=== PATIENT | male | born 1935 | race Caucasian/White ===

== ENCOUNTER 2016-04-26 08:22 | Observation (INO) | payer OTHER ==
[~2016-04-26] VITALS: Ht 170.2 cm; Wt 88.0 kg
--- NOTE | 2016-04-26 08:31 | NUR ---
PT C/O H/A SINCE LAST NIGHT, TODAY PER SON, PT CONFUSED, HAVING TROUBLE SPEAKING AND UNDERSTANDING. HAND GRASP EQUAL AND STRONG, PT AMBULATES WITHOUT DIFFICULTY, NO FACIAL DROOP NOTED
--- NOTE | 2016-04-26 08:35 | NUR ---
SPOKE WITH DR WHITE - CT HEAD ORDERED
--- NOTE | 2016-04-26 08:38 | NUR ---
C/O HEGENESIS, SPEAKS PRIMARILY [place]. PLACED ON MONITOR, IVCD RHYTHM ON MONITOR. AWAITING PROVIDER EVALUATION.
--- NOTE | 2016-04-26 08:45 | NUR ---
EVALUATED BY DR. WHITE.
--- NOTE | 2016-04-26 08:55 | NUR ---
TO CT SCAN.
--- NOTE | 2016-04-26 09:01 | ED HEADACHE COMPLAINT ---
History of Present Illness General Chief Complaint: Neuro Symptoms/ Deficit Stated Complaint: ALTERED MENTAL PER SON TIA IN PAST Source: patient, family, old records Exam Limitations: no limitations Vital Signs & Intake/Output Vital Signs & Intake/Output Vital Signs Date Time Temp Pulse Resp B/P Pulse O2 O2 Flow FiO2 Ox Delivery Rate 04/26 0830 97.0 75 20 118/70 97 Room Air Allergies Coded Allergies: NO KNOWN ALLERGIES (10/05/10) Reconcile Medications Amlodipine Besylate 5 MG TABLET 1 TAB PO DAILY HEART (Reported) Atenolol 100 MG TABLET 1 TAB PO BID HEART (Reported) Atorvastatin Calcium 20 MG TABLET 1 TAB PO DAILY CHOLESTEROL (Reported) Clopidogrel Bisulfate (Clopidogrel) 75 MG TABLET 1 TAB PO DAILY BLOOD THINNER (Reported) Finasteride 5 MG TABLET 1 TAB PO DAILY PROSTATE (Reported) Glipizide 5 MG TABLET 1 TAB PO DAILY DM (Reported) Metformin HCl 500 MG TABLET 1 TAB PO DAILY DM (Reported) Tamsulosin HCl 0.4 MG CAP.ER.24H 1 CAP PO DAILY PROSTATE (Reported) Triage Note: PT C/O H/A SINCE LAST NIGHT, TODAY PER SON, PT CONFUSED, HAVING TROUBLE SPEAKING AND UNDERSTANDING. HAND GRASP EQUAL AND STRONG, PT AMBULATES WITHOUT DIFFICULTY, NO FACIAL DROOP NOTED Triage Nurses Notes Reviewed? yes HPI: Patient presents for evaluation of a headache that began gradually last night at about 8:00. The patient is somewhat of a poor historian but was able to describe a fluctuating throbbing bifrontal headache that has been constant since onset. Patient states he typically does not get headaches but did have similar signs and symptoms with a previous TIA. There is been no associated visual changes paresthesias chest pain or palpitations. He cannot recall if he tried any medication for the headache. According to the family the patient seems somewhat confused since about 6:00 this morning upon awakening. They state he tried to put a sweater on like a pair of pants. He does not have baseline confusion. Family also states that he has having trouble articulating his words but there appears to be no expressive aphasia. Past History Travel History Traveled to [place] past 21 day No Medical History Any Pertinent Medical History? see below for history Neurological: TIA Cardiovascular: hypertension, PACEMAKER Endocrine: diabetes Surgical History Surgical History: non-contributory Psychosocial History Who do you live with Spouse What is your primary language Togolese Tobacco Use: Never used ETOH Use: denies use Illicit Drug Use: denies illicit drug use Family History Hx Contributory? No Review of Systems Review of Systems Constitutional: Reports: no symptoms. Eyes: Reports: no symptoms. Ears, Nose, Throat, Mouth: Reports: no symptoms. Respiratory: Reports: no symptoms. Cardiovascular: Reports: no symptoms. Gastrointestinal/Abdominal: Reports: no symptoms. Genitourinary: Reports: no symptoms. Musculoskeletal: Reports: no symptoms. Skin: Reports: no symptoms. Neurological/Psychological: Reports: headache. Hematologic/Endocrine: Reports: no symptoms. Endocrine: Reports: no symptoms. Immunologic/Allergic: Reports: no symptoms. All Other Systems: Reviewed and Negative Physical Exam Physical Exam Cranial Nerves: see below Comments: Gen.: Well-nourished, well-developed, no acute respiratory distress. Head: Normocephalic, atraumatic. Eyes: Normal inspection bilaterally, PERRLA, EOMI Ears: Normal inspection bilaterally Nose: Normal inspection Throat/mouth : Moist mucosa Neck: Supple, full range of motion, no goiter, no carotid bruits Heart: Regular rate and rhythm, no murmurs rubs or gallops Lungs: Clear to auscultation bilaterally with normal air entry Chest: Nontender Back: Normal range of motion Abdomen: Soft, nontender, nondistended, normal bowel sounds Extremities: Normal range of motion grossly, equal radial pulses, no cyanosis clubbing or edema Neurologic: Cranial nerves 2 through 12 intact, speech is occasionally slurred, no dysmetria Skin: warm and dry Psychiatric: Calm, cooperative, no apparent delusions or hallucinations Core Measures Severe Sepsis Present: No Septic Shock Present: No Progress Differential Diagnosis: tia/cva, primary headache syndrome, urinary tract infection, hypothyroidism, occult infection, dehydration, electrolyte abnormality Plan of Care: Orders Procedure Date/time Status Saline Lock 04/26 900 Active CULTURE,URINE 04/26 900 Active URINE DRUG SCREEN FOR ER ONLY 04/26 900 Complete URINALYSIS 04/26 900 Complete THYROID STIMULATING HORMONE 04/26 900 Complete TROPONIN LEVEL 04/26 900 Complete T3 UPTAKE (THYROXINE BIND CAP) 04/26 900 Complete THYROXINE 04/26 900 Complete ETHANOL 04/26 900 Complete COMPREHENSIVE METABOLIC PANEL 04/26 900 Complete CBC WITHOUT DIFFERENTIAL 04/26 900 Complete EKG 04/26 0838 Active Laboratory Tests 04/26/16 1015: Urine Opiates Screen < 100.00, Methadone Screen < 40, Barbiturate Screen < 60, Ur Phencyclidine Scrn < 6.00, Amphetamines Screen < 100, U Benzodiazepines Scrn < 85, Urine Cocaine Screen < 50, Urine Cannabis Screen < 5.00, Urine Color YEL, Urine Clarity CLEAR, Urine pH 7.0, Ur Specific Castell 1.015, Urine Protein TRACE H, Urine Ketones NEG, Urine Nitrite NEG, Urine Bilirubin NEG, Urine Urobilinogen 0.2, Ur Leukocyte Esterase NEG, Ur Microscopic SEDIMENT EXAMINED, Urine RBC 3-5, Ur Epithelial Cells FEW, Urine Bacteria RARE H, Urine Hemoglobin TRACE-INTACT H, Urine Glucose NEG 04/26/16 0913: Anion Gap 11, Estimated GFR > 60, BUN/Creatinine Ratio 21.0, Glucose 157 H, Calcium 9.7, Total Bilirubin 1.1, AST 30, ALT 40, Alkaline Phosphatase 119, Troponin I < 0.01, Total Protein 7.5, Albumin 4.3, Globulin 3.2, Albumin/ Globulin Ratio 1.3, TSH 1.440, Thyroxine (T4) 10.2, Thyroxine Binding Indx 35.7, CBC w Diff MAN DIFF ORDERED, RBC 5.66, MCV 84.4, MCH 28.2, RDW 13.5, MPV 9.2, Gran % 84.0 H, Lymphocytes % 9.9 L, Monocytes % 5.5, Eosinophils % 0.6, Basophils % 0 L, Absolute Granulocytes 10.0 H, Absolute Lymphocytes 1.2, Absolute Monocytes 0.7 H, Absolute Eosinophils 0.1, Absolute Basophils 0, Platelet Estimate VERIFIED BY SMEAR, Normocytic RBCs VERIFIED, Normochromic RBCs VERIFIED, PUBS MCHC 33.4, Serum Alcohol < 10.0 Microbiology 04/26 1015 URINE ROUT: Urine Culture - RECD Diagnostic Imaging: Discussed w/RAD: CT Scan. Radiology Impression: PATIENT: STEPHANIE AVINA PRESENT AGE: 80 PATIENT ACCOUNT NO: [id number] : 34 LOCATION: [facility] ORDERING PHYSICIAN: TANISHA WHITE MD SERVICE DATE: 04/26/16 EXAM TYPE: CAT - CT HEAD WO IV CONTRAST EXAMINATION: CT HEAD WITHOUT CONTRAST CLINICAL INFORMATION: Stroke intracranial hemorrhage. Headache confusion COMPARISON: CT head September 2015 TECHNIQUE: Contiguous axial imaging was performed from the skull base to vertex without intravenous administration of contrast. DLP: 600 mGy-cm FINDINGS: Exam is slightly limited as of motion artifact in the in the lower more caudal images There is no evidence of acute intracranial hemorrhage or territorial infarction. No abnormal mass effect or midline shift is seen. Cifuentes to white matter differentiation is well preserved. No extra-axial fluid collections are identified. The ventricles are normal in size. There is stable periventricular white matter changes compatible with small vessel disease . The osseous structures and soft tissues are normal. The mastoid air cells and visualized portions of the paranasal sinuses are well aerated. IMPRESSION: No acute intracranial pathology. No change compared with September 2015 DICTATED BY: ARTURO HERBERT MD DATE/TIME DICTATED:04/26/16912 INTERNATIONAL FREIGHT FORWARDER: WILLIE DATE/TIME TRANSCRIBED:04/26/16912 CONFIDENTIAL, DO NOT COPY WITHOUT APPROPRIATE AUTHORIZATION. <Electronically signed in Other Vendor System> SIGNED BY: ARTURO HERBERT MD 04/26/16 0920 CXR Impression: PATIENT: STEPHANIE AVINA SR PRESENT AGE: 80 PATIENT ACCOUNT NO: [id number] : 34 LOCATION: [facility] ORDERING PHYSICIAN: TANISHA WHITE MD SERVICE DATE: 04/26/16 EXAM TYPE: RAD - XRY-PORTABLE CHEST XRAY EXAMINATION: XR PORTABLE CHEST CLINICAL INFORMATION: CHF infiltrate. COMPARISON: Prior chest September 2015. TECHNIQUE: Portable AP view of the chest was obtained. FINDINGS: LUNGS AND PLEURAL SPACES: Lung volumes decreased compatible with suboptimal inspiration. Lungs clear. Left pectoral pacer noted with leads in the region of the right atrium and right ventricle. Abandoned right-sided pacemaker leads noted, unchanged. The cardiac silhouette, mediastinum and pulmonary vascularity are normal. BONE AND SOFT TISSUES: Unremarkable. IMPRESSION: No acute disease. No change. Stable pacer noted. DICTATED BY: ARTURO HERBERT MD DATE/TIME DICTATED:04/26/16939 INTERNATIONAL FREIGHT FORWARDER:WILLIE DATE/TIME TRANSCRIBED:04/26/16939 CONFIDENTIAL, DO NOT COPY WITHOUT APPROPRIATE AUTHORIZATION. <Electronically signed in Other Vendor System> SIGNED BY: ARTURO HERBERT MD 04/26/16 1012 Initial ED EKG: pacemaker rhythm, LBBB Comments: Given the onset of symptoms and the normal NIH stroke scale, I feel there is no indication for consideration of TPA. 04/26/2016 11:06:04 AM I have updated Stephanie and his family on test results. The etiology of the symptoms is unclear at this point. He describes it as bifrontal headache is mild now but he is agreeable to Tylenol. His family confirms that he is still not at baseline as far as his level of interaction. Plan admission. Departure Departure Disposition: STILL A PATIENT Condition: Stable Clinical Impression Primary Impression: Altered mental status, unspecified Qualifiers: Altered mental status type: unspecified Qualified Code: R41.82 - Altered mental status, unspecified Referrals: Ventura MERCADO MD (PCP/Family) Departure Forms: Customer Survey General Discharge Information Admission Note Documentation of Exam: Documentation of any treatments & extenuating circumstances including Concerns Regarding Discharge (functional status, medication knowledge or non-compliance, living conditions, etc.) that warrant an admission rather than observation: Observation Note Spoke With: TOMASA WADE,TERESA Physician Advisor Notified: CLOVER WADE,STEPHANIE Cottrell Place Patient In: Non-ED OBS Care Area Rationale for Observation: My rational for observation is as follows: Patient has ongoing alteration in mental status including difficulty in following commands and answering questions , patient often appears somewhat confused with questioning. I am concerned about his ability to return home and I feel ADLs safely. In addition I do not feel that he would be capable of following outpatient treatment plan and participating in follow-up care. Given his persistent altered mental status I feel hospitalization is now appropriate with additional testing such as MRI scan and additional evaluation by such as neurology. .
--- NOTE | 2016-04-26 09:11 | NUR ---
RETURNED FROM CT SCAN.
--- NOTE | 2016-04-26 09:17 | NUR ---
LABS DRAWN AND SENT LAV,SST,BLUE TOP
--- NOTE | 2016-04-26 09:20 | CT SCAN REPORT ---
EXAMINATION: CT HEAD WITHOUT CONTRAST CLINICAL INFORMATION: Stroke intracranial hemorrhage. Headache confusion COMPARISON: CT head September 2015 TECHNIQUE: Contiguous axial imaging was performed from the skull base to vertex without intravenous administration of contrast. DLP: 600 mGy-cm FINDINGS: Exam is slightly limited as of motion artifact in the in the lower more caudal images There is no evidence of acute intracranial hemorrhage or territorial infarction. No abnormal mass effect or midline shift is seen. Cifuentes to white matter differentiation is well preserved. No extra-axial fluid collections are identified. The ventricles are normal in size. There is stable periventricular white matter changes compatible with small vessel disease . The osseous structures and soft tissues are normal. The mastoid air cells and visualized portions of the paranasal sinuses are well aerated. IMPRESSION: No acute intracranial pathology. No change compared with September 2015
[2016-04-26 09:33] LABS: ABSOLUTE BASOPHIL COUNT 0 /CUMM (0.0-0.2); ABSOLUTE EOSINOPHIL COUNT 0.1 /CUMM (0.0-0.7); ABSOLUTE LYMPH COUNT 1.2 /CUMM (1.2-3.4); ABSOLUTE MONOCYTE COUNT 0.7 /CUMM (0.10-0.60); BASOPHIL % 0 % (0.0-2.0); EOSINOPHIL % 0.6 % (0-5); HEMATOCRIT 47.7 % (42-52); MEAN CORPUSCULAR HGB 28.2 PG (27.0-31.0); MEAN CORPUSCULAR HGB CONC 33.4 G/DL (33.0-37.0); MEAN CORPUSCULAR VOLUME 84.4 FL (80.0-94.0); MEAN PLATELET VOLUME 9.2 FL (7.4-10.4); PLATELET COUNT 174 /CUMM (130-400); RBC DISTRIBUTION WIDTH 13.5 % (11.5-14.5); RED BLOOD CELL CT 5.66 /CUMM (4.70-6.10); WHITE BLOOD CELL COUNT 11.9 /CUMM (4.8-10.8)
[2016-04-26] MEDS ORDERED: ATORVASTATIN CA20 M1 PO (09:43)
[2016-04-26] MEDS ORDERED: AMLODIPINE BESYL5 M1 PO (09:43)
[2016-04-26] MEDS ORDERED: ATENOLOL100 M1 PO (09:43)
[2016-04-26] MEDS ORDERED: CLOPIDOGREL75 M1 PO (09:44)
[2016-04-26] MEDS ORDERED: FINASTERIDE5 M1 PO (09:44)
[2016-04-26] MEDS ORDERED: GLIPIZIDE5 M2 PO (09:44)
[2016-04-26] MEDS ORDERED: LOSARTAN POTAS100 M1 PO (09:45)
[2016-04-26] MEDS ORDERED: TAMSULOSIN HCL0.4 M1 PO (09:45)
[2016-04-26] MEDS ORDERED: METFORMIN HCL500 M3 PO (09:45)
--- NOTE | 2016-04-26 10:12 | RADIOLOGY REPORT ---
EXAMINATION: XR PORTABLE CHEST CLINICAL INFORMATION: CHF infiltrate. COMPARISON: Prior chest September 2015. TECHNIQUE: Portable AP view of the chest was obtained. FINDINGS: LUNGS AND PLEURAL SPACES: Lung volumes decreased compatible with suboptimal inspiration. Lungs clear. Left pectoral pacer noted with leads in the region of the right atrium and right ventricle. Abandoned right-sided pacemaker leads noted, unchanged. The cardiac silhouette, mediastinum and pulmonary vascularity are normal. BONE AND SOFT TISSUES: Unremarkable. IMPRESSION: No acute disease. No change. Stable pacer noted.
--- NOTE | 2016-04-26 10:17 | NUR ---
URINE SPECIMEN SENT TO THE LAB (2 CLEAR,RED/YEL,RUVALCABA)
--- NOTE | 2016-04-26 11:36 | History & Physical ---
EDA GAVIRIA 04/26/16 1135: General Information and HPI MD Statement: I have seen and personally examined STEPHANIE CONNOR and documented this H&P. The patient is a 80 year old M who presented with a patient stated chief complaint of [altered mental status]. Source of Information: family Exam Limitations: language barrier History of Present Illness: 80-year-old male with a past medical history of xqb-[id number] diabetes mellitus, hypertension, hyperlipidemia, benign prostatic hyperplasia, TIA, complete heart block status post dual-chamber pacemaker was brought to the ED by his son with chief complaints of altered mental status and headache has been going on for the past 1 day. Much of the history is obtained from the family as the patient is [place]- speaking. According to the patient's son Mr. Connor was in his usual state of health up until last night when he complained of frontal headache that he rated as a 9 out of 10. He took Tylenol and went to bed. Apparently woke up this morning at around 6 AM and the family found him disoriented and confused. He wasn't able to comprehend what they were saying and or follow commands appropriately. Apparently he wanted to use the restroom this AM and was having incraesingly difficulty manipulating his clothes, thinking that his shirt were his pants. Denies chest pain, palpitations, fever, chills, shortness of breath, any tingling or numbing sensation, weakness in his extremities, and no history of any seizure-like activity, and/or facial droop or slurring of speech. According to the family patient is very much independent in terms of his ADLs and IADLs. He may have some slight memory deficit but not to the extent that the family noticed since this morning. Allergies/Medications Allergies: Coded Allergies: NO KNOWN ALLERGIES (10/05/10) Home Med list Amlodipine Besylate 5 MG TABLET 1 TAB PO DAILY HEART (Reported) Atenolol 100 MG TABLET 1 TAB PO BID HEART (Reported) Atorvastatin Calcium 20 MG TABLET 1 TAB PO DAILY CHOLESTEROL (Reported) Clopidogrel Bisulfate (Clopidogrel) 75 MG TABLET 1 TAB PO DAILY BLOOD THINNER (Reported) Finasteride 5 MG TABLET 1 TAB PO DAILY PROSTATE (Reported) Glipizide 5 MG TABLET 1 TAB PO DAILY DM (Reported) Metformin HCl 500 MG TABLET 1 TAB PO DAILY DM (Reported) Tamsulosin HCl 0.4 MG CAP.ER.24H 1 CAP PO DAILY PROSTATE (Reported) Compliance With Home Meds: GOOD Past History Travel History Traveled to [place] past 21 day No Medical History Neurological: TIA Cardiovascular: hypertension, PACEMAKER Endocrine: diabetes History of CDIFF: No Isolation History: Standard Surgical History Surgical History: non-contributory Past Family/Social History Psychosocial History Where do you live? Home Who Do You Live With? spouse Services at Home: None Smoking Status: Never Smoked ETOH Use: denies use Illicit Drug Use: denies illicit drug use Review of Systems Review of Systems Constitutional: Denies: chills, fever, malaise. EENTM: Denies: visual changes. Cardiovascular: Denies: chest pain, palpitations, peripheral edema, syncope. Respiratory: Denies: cough, short of breath, sputum production, wheezing. GI: Denies: abdominal pain, constipation, diarrhea, nausea, vomiting. Genitourinary: Reports: no symptoms. Musculoskeletal: Reports: no symptoms. Neurological/Psychological: Reports: cognitive dysfunction, confusion, headache. Denies: ataxia, numbness, paresthesia, tingling, tremors, tonic-clonic seizures, unable to move lower ext, unable to move upper ext, weakness. Exam & Diagnostic Data Last 24 Hrs of Vital Signs/I&O Vital Signs Date Time Temp Pulse Resp B/P Pulse O2 O2 Flow FiO2 Ox Delivery Rate 04/26 0830 97.0 75 20 118/70 97 Room Air Intake & Output 04/26 1600 04/26 0800 03 0000 Intake Total 0 Output Total Balance 0 Intake, Oral 0 Patient 195 lb Weight Physical Exam General Appearance Alert, Oriented X3, Cooperative, No Acute Distress HEENT Atraumatic, PERRLA, EOMI, Mucous Membr. moist/pink Neck Supple, No JVD, No thryomegaly, +2 Carotid Pulse wo Bruit, No LAD Cardiovascular Normal S1, Normal S2, No Murmurs Lungs Clear to Auscultation, Normal Air Movement Abdomen Normal Bowel Sounds, Soft, No Tenderness Neurological Normal Speech, Strength at 5/5 X4 Ext, Normal Tone, Sensation Intact, Cranial Nerves 3-12 NL, Reflexes 2+ Extremities No Cyanosis, No Edema, Normal Pulses, No Tenderness/Swelling, has excoriation on hi shins b/l Vascular Normal Pulses, Pulses Symmetrical Last 24 Hrs of Labs/Jr: Laboratory Tests 04/26/16 1015: Urine Opiates Screen < 100.00, Methadone Screen < 40, Barbiturate Screen < 60, Ur Phencyclidine Scrn < 6.00, Amphetamines Screen < 100, U Benzodiazepines Scrn < 85, Urine Cocaine Screen < 50, Urine Cannabis Screen < 5.00, Urine Color YEL, Urine Clarity CLEAR, Urine pH 7.0, Ur Specific [place] 1.015, Urine Protein TRACE H, Urine Ketones NEG, Urine Nitrite NEG, Urine Bilirubin NEG, Urine Urobilinogen 0.2, Ur Leukocyte Esterase NEG, Ur Microscopic SEDIMENT EXAMINED, Urine RBC 3-5, Ur Epithelial Cells FEW, Urine Bacteria RARE H, Urine Hemoglobin TRACE-INTACT H, Urine Glucose NEG 04/26/16 0913: Anion Gap 11, Estimated GFR > 60, BUN/Creatinine Ratio 21.0, Glucose 157 H, Calcium 9.7, Total Bilirubin 1.1, AST 30, ALT 40, Alkaline Phosphatase 119, Troponin I < 0.01, Total Protein 7.5, Albumin 4.3, Globulin 3.2, Albumin/ Globulin Ratio 1.3, TSH 1.440, Thyroxine (T4) 10.2, Thyroxine Binding Indx 35.7, CBC w Diff MAN DIFF ORDERED, RBC 5.66, MCV 84.4, MCH 28.2, RDW 13.5, MPV 9.2, Gran % 84.0 H, Lymphocytes % 9.9 L, Monocytes % 5.5, Eosinophils % 0.6, Basophils % 0 L, Absolute Granulocytes 10.0 H, Absolute Lymphocytes 1.2, Absolute Monocytes 0.7 H, Absolute Eosinophils 0.1, Absolute Basophils 0, Platelet Estimate VERIFIED BY SMEAR, Normocytic RBCs VERIFIED, Normochromic RBCs VERIFIED, PUBS MCHC 33.4, Serum Alcohol < 10.0 Microbiology 04/26 1015 URINE ROUT: Urine Culture - RECD Diagnostic Data EKG Results Atrial sensed ventricular paced rythm. CXR Results FINDINGS: LUNGS AND PLEURAL SPACES: Lung volumes decreased compatible with suboptimal inspiration. Lungs clear. Left pectoral pacer noted with leads in the region of the right atrium and right ventricle. Abandoned right-sided pacemaker leads noted, unchanged. The cardiac silhouette, mediastinum and pulmonary vascularity are normal. BONE AND SOFT TISSUES: Unremarkable. IMPRESSION: No acute disease. No change. Stable pacer noted Other Results SERVICE DATE: 04/26/16 EXAM TYPE: CAT - CT HEAD WO IV CONTRAST EXAMINATION: CT HEAD WITHOUT CONTRAST CLINICAL INFORMATION: Stroke intracranial hemorrhage. Headache confusion COMPARISON: CT head September 2015 TECHNIQUE: Contiguous axial imaging was performed from the skull base to vertex without intravenous administration of contrast. DLP: 600 mGy-cm FINDINGS: Exam is slightly limited as of motion artifact in the in the lower more caudal images There is no evidence of acute intracranial hemorrhage or territorial infarction. No abnormal mass effect or midline shift is seen. Cifuentes to white matter differentiation is well preserved. No extra-axial fluid collections are identified. The ventricles are normal in size. There is stable periventricular white matter changes compatible with small vessel disease . The osseous structures and soft tissues are normal. The mastoid air cells and visualized portions of the paranasal sinuses are well aerated. IMPRESSION: No acute intracranial pathology. No change compared with September 2015 Assessment/Plan Assessment: 80-year-old male with a past medical history of [id number]-lgctizdnk diabetes mellitus, hypertension, hyperlipidemia, benign prostatic hyperplasia, TIA, complete heart block status post dual-chamber pacemaker was brought to the ED by his son with chief complaints of altered mental status and headache has been going on for the past 1 day. Vitals on admission blood pressure 157/78, afebrile pulse 73, respiratory rate 20, saturating 98% on room air. On physical exam, he is alert and oriented x3, and in no acute distress sitting comfortably in bed. HEENT revealed PERRLA, moist mucous membranes. Examination of the neck did not reveal any JVD. Cardiovascular exam is benign with normal S1, S2, no murmurs appreciated. Respiratory exam was unremarkable with chest clear to auscultation bilaterally. Abdominal exam was benign with abdomen soft, nontender, nondistended with bowel sounds heard in all 4 quadrants. Examination of the lower extremities did not reveal any edema. Neurological exam revealed cranial nerves II through XII grossly intact, strength 5 out of 5 in all 4 extremities, 2+ reflexes. Gait could not be assessed. Cerebellar exam was grossly intact. Labs pertinent for an H&H of 15.9/47.7, leukocytosis of 11,900, platelet count 174,000. Serum chemistries revealed a sodium 140, potassium of 3.8, bicarbonate 31, anion gap 11, BUN 21 and creatinine 1.0. LFTs unremarkable with an AST/ALT 30/40, total bili 1.1, alkaline phosphatase of 119. Full set of troponin negative at less than 0.01 with a TSH of 1.40. His U tox was negative and UA revealed trace amount of proteinuria. Head CT showed no acute intracranial pathology. Chest x-ray showed no acute pathology. His last echocardiogram was done in December 2014 which showed a left ventricular ejection fraction 65%, abnormal septal motion abnormality that was consistent with pacemaker placement. His RVSP was elevated to 50 millimeters of mercury and he had stage I diastolic dysfunction. Of note he was admitted to the hospital back in September 2010 and was thought to have a left hemispheric TIA. A carotid ultrasound done at that time did not show any occlusion. Assessment and plan Place on observation on telemetry. #Altered mental status secondary to transient ischemic attack - We'll obtain ultrasound carotid Continue on Plavix and atorvastatin 21 g daily Of note patient was previously on aspirin and then switch to Plavix after he was found to have left hemispheric TIA in 2010. Neurology consult with Dr. Hood is already been placed. Follow-up recommendations F/U Echocardiogram MRI cannot be done as patient has a pacemaker that according to the family is not MRI compatible. Of note patient passed bedside swallow eval and is now going to being on regular and dense as per speech therapist. Vitals every shift Neuro checks #Hypertension Well controlled Continue on amlodipine 5 mg daily, atenolol 100 mg twice a day. #BPH Continue on finasteride 5 mg daily and tamsulosin 0.4 mg daily # Paa-hvxarex-enrcnhyox diabetes mellitus Patient is on glipizide and metformin While he is in the hospital will have him on NovoLog sliding scale Accu-Cheks 3 times a day at bedtime Follow-up hemoglobin A1c DVT prophylaxis Heparin 5000 international units 3 times a day subcutaneous CODE STATUS Full code As Ranked By This Provider Problem List: 1. Altered mental status, unspecified Qualifiers Altered mental status type: unspecified Qualified Code: R41.82 - Altered mental status, unspecified 2. Transient ischemic attack 3. Implantation of cardiac pacemaker Core Measures/Miscellaneous Acute Coronary Syndrome ACS Diagnosis: No Cerebrovascular Accident CVA/TIA Diagnosis: Yes NIH Stroke Scale: Total 1 Date Last Known Well: 04/25/16 Time Last Known Well: 2200 Symptom Start Date: 04/26/16 Symptom Start Time: 0600 Reason tPA not ordered Medical Contraindication Bedside Swallow Eval Done: Yes Result of Evaluation: Pass Antithrombotic: Yes AFIB: No Aflutter: No Anticoagulant: Yes Evidence of Atherosclerosis: No LDL Assessed Within 24 Hours: Yes Currently on Statin: Yes Rehab Needs Assessed: Medical Eval for Rehab PT Consult Ordered: Yes Comment: COMPREHENSIVE APHASIA Congestive Heart Failure CHF Diagnosis: No Venous Thromboembolism VTE Risk Factors: Age > 40 [facility] prophylaxis d/t: No contraindications No VTE Pharm Prophylaxis d/t: No contraindications VTE Diagnosis: No VTE Type: NONE VTE Confirmed by (Test): NONE Severe Sepsis Severe Sepsis Present: No Septic Shock Septic Shock Present: No Miscellaneous Documentation Attending Case Discussed With: NADJA SHARPE M.D Primary Care Physician: Ventura MERCADO MD Patient sees these Specialists Dr. Rob (Cardio) Dr. Yang (Opth) Level of Patient Care: Telemetry Consults Needed: Consulting Specialty: Neurology Consulting Physician: Dr. Colunga Reason for Consult: TIA Resident Review Statement Resident Statement: ADMITTED BY RESIDENT NADJA SHARPE MD 04/26/16 1537: Attending MD Review Statement Attending Statement Attending MD Statement: examined this patient, discuss w/resident/PA/UROLOGY PHYSICIAN ASSISTANT, agreed w/resident/PA/UROLOGY PHYSICIAN ASSISTANT, discussed with family, reviewed EMR data (avail), discussed with nursing, amended to note Attending Assessment/Plan: Patient is a pleasant 80-year-old male with history of gni-jzcgtnt-gszjbfvjg diabetes mellitus hypertension dyslipidemia BPH and previous history of TIA. History is also significant for complete heart block status post dual chamber pacemaker placement. Running by family for evaluation due to complaints of headache and altered mental status. Patient's history is as detailed by the certified medical records coder above. On examination patient is alert and oriented 3. He is mainly [place]-speaking but does understand some Bahamian. I found a patient bilateral and oriented 3. He had no gross focal deficits on examination while and then significant hearing deficits. He is able to comprehend appropriately and expressing cells. He does have some hesitation in responding however it appears related to his difficulty hearing. I could not elicit any word finding problems when communicating with him. He speech was certainly more spontaneous when communicating with his family in [place]. His bizarre behavior at home however is concerning. This however appears to have resolved. An MRI would be warranted for further cerebral imaging to rule out ischemia however this cannot be done due to his pacemaker. Recommendations: -Patient on the telemetry service overnight. Monitor for any arrhythmias. -Cardiology consultation for interrogation of pacemaker. -Carotid Dopplers showed no evidence of significant carotid artery stenosis. -Check orthostatic vitals. -Continue lipid-lowering therapy with statin. Patient is on Plavix after being switched over from aspirin during his previous TIA. There is low likelihood of any added benefit from altering his antiplatelet therapy at this point. -Follow-up any added recommendations from the neurology service.
--- NOTE | 2016-04-26 11:39 | NUR ---
RE-ASSESSMENT PERFORMED, NEUROLOGICAL STATUS UNCHANGED. PT REPORTS HEADACHE, 09/03. DR WHITE NOTIFIED. ALL V.S[facility].
--- NOTE | 2016-04-26 11:51 | NUR ---
LUNCH TRAY ORDERED.
--- NOTE | 2016-04-26 12:33 | NUR ---
PT MEDICATED WITH 1 G IV TYLENOL FOR 7/10 HEADACHE. LUNCH TRAY ORDERED.
--- NOTE | 2016-04-26 13:18 | NUR ---
PT SENT TO U/S
--- NOTE | 2016-04-26 13:54 | NUR ---
PT BACK TO ROOM, CLINICAL STATUS UNCHANGED.
--- NOTE | 2016-04-26 14:10 | NUR ---
PT HAS BED ASSIGNMENT 187. RN NOTIFIED.
--- NOTE | 2016-04-26 14:42 | NUR ---
CLINICAL STATUS UNCHANGED, PT REPORTS H/A 4-5/10. PT REFUSING OXYCODONE OR PERCOSET FOR PAIN NEUROLOGICAL STATUS UNCHANGED.
--- NOTE | 2016-04-26 14:48 | ULTRASOUND REPORT ---
EXAMINATION: DUPLEX BILATERAL CAROTID ULTRASOUND CLINICAL INFORMATION: TIA; question carotid stenosis. COMPARISON: Carotid duplex dated 10/05/2010. TECHNIQUE: Real-time ultrasound and Doppler techniques (integrating B-mode 2D vascular images, Doppler spectral analysis and color flow Doppler imaging) were utilized to interrogate the extracranial carotid and vertebral arteries bilaterally. FINDINGS: Right side: 1. There is no significant plaque in the ECA/ICA region. 2. The common carotid artery velocity is 93 cm/s. 3. The proximal internal carotid artery velocities are 44 cm/s systolic and 11 cm/s diastolic. 4. The external carotid artery velocity is 70 cm/s. Left side: 1. There is no significant plaque in the ECA/ICA region. 2. The common carotid artery velocity is 101 cm/s. 3. The proximal internal carotid artery velocities are 58 cm/s systolic and 16 cm/s diastolic. 4. The external carotid artery velocity is 101 cm/s. ADDITIONAL FINDINGS: 1. The vertebral arteries show antegrade flow. IMPRESSION: 1. RIGHT: No significant stenosis of the proximal right internal carotid artery corresponding to a 0-49% stenosis by velocity criteria. 2. LEFT: No significant stenosis of the proximal left internal carotid artery corresponding to a 0-49% stenosis by velocity criteria. 3. Antegrade flow is seen via the bilateral vertebral arteries.
--- NOTE | 2016-04-26 14:53 | NUR ---
PT ADMITTED TO ROOM # [id number]. ORAL REPORT GIVEN TO ELENA LARA ALL V.S.S. CLINICAL STATUS UNCHANGED. PT READY FOR TRANSFER AT 3:30 PM
--- NOTE | 2016-04-26 16:24 | NUR ---
BEDSIDE U/S COMPLETE. PT READY FOR TRANSFER
--- NOTE | 2016-04-26 16:27 | Cons- Neurology ---
General Information and HPI Consulting Request Date of Consult: 04/26/16 Requested By: NADJA SHARPE M.D History of Present Illness: 80-year-old male presents to the ED after 2 day onset of frontal headache followed by confusion family states that he was repetitive, had difficulty getting dressed, and was saying some nonsensical sentences which didn't quite make sense to the family When the symptoms persisted, he was brought to [facility] There was no focal weakness, paresthesias, loss of consciousness, seizure, fall, head trauma Over the past few hours, his symptoms started to improve. Allergies/Medications Allergies: Coded Allergies: NO KNOWN ALLERGIES (10/05/10) Home Med List: Amlodipine Besylate 5 MG TABLET 1 TAB PO DAILY HEART (Reported) Atenolol 100 MG TABLET 1 TAB PO BID HEART (Reported) Atorvastatin Calcium 20 MG TABLET 1 TAB PO DAILY CHOLESTEROL (Reported) Clopidogrel Bisulfate (Clopidogrel) 75 MG TABLET 1 TAB PO DAILY BLOOD THINNER (Reported) Finasteride 5 MG TABLET 1 TAB PO DAILY PROSTATE (Reported) Glipizide 5 MG TABLET 1 TAB PO DAILY DM (Reported) Metformin HCl 500 MG TABLET 1 TAB PO DAILY DM (Reported) Tamsulosin HCl 0.4 MG CAP.ER.24H 1 CAP PO DAILY PROSTATE (Reported) Current Medications: Current Medications Sig/Margaux Start time Last Medication Dose Route Stop Time Status Admin Acetaminophen 1,000 MG ONCE ONE 04/26 1230 DC 04/26 N/A 1 UNIT IV 04/26 1244 1233 Acetaminophen 0 .STK-MED ONE 04/26 1229 DC IV Acetaminophen 650 MG Q6 PRN 04/26 1200 AC PO Amlodipine Besylate 5 MG DAILY 04/27 1000 AC PO Atenolol 100 MG DAILY 04/27 1000 AC PO Atorvastatin Calcium 20 MG 1700 04/26 1700 AC PO Clopidogrel Bisulfate 75 MG DAILY 04/27 1000 AC PO Finasteride 5 MG DAILY 04/27 1000 AC PO Heparin Sodium 0 .STK-MED ONE 04/26 1440 DC (Porcine) .ROUTE Heparin Sodium 5,000 UNIT Q8 04/26 1400 AC 04/26 (Porcine) SC 1434 Insulin Aspart 0 TIDAC 04/26 1700 AC SC Oxycodone HCl 5 MG Q6 PRN 04/26 1200 AC PO Oxycodone/ 2 TAB Q6 PRN 04/26 1200 AC Acetaminophen PO Tamsulosin HCl 0.4 MG DAILY 04/27 1000 AC PO Review of Systems Review of Systems: No diplopia, vertigo, dysarthria, chest pain, breathing troubles, nausea or vomiting, incontinence, focal weakness, fever, gait difficulty Other systems reviewed and negative Past History Travel History Traveled to [place] past 21 day No Medical History Neurological: TIA Cardiovascular: hypertension, PACEMAKER Endocrine: diabetes Surgical History Surgical History: none (no illness known), non-contributory Psychosocial History Where Do You Live? Home Who Do You Live With? spouse Services at Home: None Smoking Status: Never Smoked ETOH Use: denies use Illicit Drug Use: denies illicit drug use Exam & Diagnostic Data Vital Signs and I&O Vital Signs Date Time Temp Pulse Resp B/P Pulse O2 O2 Flow FiO2 Ox Delivery Rate 04/26 1500 130/80 04/26 1353 97.8 66 18 135/74 97 Room Air 04/26 1135 97.9 73 20 157/78 98 Room Air 04/26 0830 97.0 75 20 118/70 97 Room Air Intake & Output 04/26 1600 04/26 0800 04/26 0000 Intake Total 0 Output Total Balance 0 Intake, Oral 0 Patient 195 lb Weight Physical Exam: Alert and oriented and in no distress , Extraocular movements full ,pupils equal and reactive, visual mullen intact, fundi benign, no facial weakness or sensory loss, palate tongue and shoulders intact, hearing is intact Heart sounds normal, no carotid bruits, distal pulses intact Normal tone and strength upper and lower extremities Sensory examination intact to light touch bilaterally Coordinative functions are intact . Gait normal,. No ataxia Last 48 Hours of Lab Results: Laboratory Tests 04/26 1015 Toxicology Urine Opiates Screen (>2000 NG/ML) < 100.00 Methadone Screen (>300 NG/ML) < 40 Barbiturate Screen (>200 NG/ML) < 60 Ur Phencyclidine Scrn (>25 NG/ML) < 6.00 Amphetamines Screen (>1000 NG/ML) < 100 U Benzodiazepines Scrn (>200 NG/ML) < 85 Urine Cocaine Screen (>300 NG/ML) < 50 Urine Cannabis Screen (>50 NG/ML) < 5.00 Urines Urine Color (YEL,AMB,STR) YEL Urine Clarity (CLEAR) CLEAR Urine pH (5.0 - 8.0) 7.0 Ur Specific [place] (1.001 - 1.035) 1.015 Urine Protein (NEG,<30 MG/DL) TRACE H Urine Ketones (NEG) NEG Urine Nitrite (NEG) NEG Urine Bilirubin (NEG) NEG Urine Urobilinogen (0.1 - 1.0 EU/dl) 0.2 Ur Leukocyte Esterase (NEG) NEG Ur Microscopic SEDIMENT EXAMINED Urine RBC (0 - 5 /HPF) 3-5 Ur Epithelial Cells (NONE,FEW) FEW Urine Bacteria (NEG/NONE) RARE H Urine Hemoglobin (NEG) TRACE-INTACT H Urine Glucose (N MG/DL) NEG 04/26 0913 Chemistry Sodium (137 - 145 mmol/L) 140 Potassium (3.5 - 5.1 mmol/L) 3.8 Chloride (98 - 107 mmol/L) 98 Carbon Dioxide (22 - 30 mmol/L) 31 H Anion Gap (5 - 16) 11 BUN (9 - 20 mg/dL) 21 H Creatinine (0.7 - 1.2 mg/dL) 1.0 Estimated GFR (>60 ml/min) > 60 BUN/Creatinine Ratio (7 - 25 %) 21.0 Glucose (65 - 99 mg/dL) 157 H Hemoglobin A1c (4.2 - 5.8 %) Pending Calcium (8.4 - 10.2 mg/dL) 9.7 Total Bilirubin (0.2 - 1.3 mg/dL) 1.1 AST (17 - 59 U/L) 30 ALT (21 - 72 U/L) 40 Alkaline Phosphatase (< 127 U/L) 119 Troponin I (<0.11 ng/ml) < 0.01 Total Protein (6.3 - 8.2 g/dL) 7.5 Albumin (3.5 - 5.0 g/dL) 4.3 Globulin (1.9 - 4.2 gm/dL) 3.2 Albumin/Globulin Ratio (1.1 - 2.2 %) 1.3 TSH (0.270 - 4.200 uIU/mL) 1.440 Thyroxine (T4) (4.5 - 10.9 ug/dL) 10.2 Thyroxine Binding Indx (23.5 - 40.5 % UPTAKE) 35.7 Hematology CBC w Diff MAN DIFF ORDERED WBC (4.8 - 10.8 /CUMM) 11.9 H RBC (4.70 - 6.10 /CUMM) 5.66 Hgb (14.0 - 18.0 G/DL) 15.9 Hct (42 - 52 %) 47.7 MCV (80.0 - 94.0 FL) 84.4 MCH (27.0 - 31.0 PG) 28.2 RDW (11.5 - 14.5 %) 13.5 Plt Count (130 - 400 /CUMM) 174 MPV (7.4 - 10.4 FL) 9.2 Gran % (42.2 - 75.2 %) 84.0 H Lymphocytes % (20.5 - 51.1 %) 9.9 L Monocytes % (1.7 - 9.3 %) 5.5 Eosinophils % (0 - 5 %) 0.6 Basophils % (0.0 - 2.0 %) 0 L Absolute Granulocytes (1.4 - 6.5 /CUMM) 10.0 H Absolute Lymphocytes (1.2 - 3.4 /CUMM) 1.2 Absolute Monocytes (0.10 - 0.60 /CUMM) 0.7 H Absolute Eosinophils (0.0 - 0.7 /CUMM) 0.1 Absolute Basophils (0.0 - 0.2 /CUMM) 0 Platelet Estimate (ADEQUATE) VERIFIED BY SMEAR Normocytic RBCs VERIFIED Normochromic RBCs VERIFIED PUBS MCHC (33.0 - 37.0 G/DL) 33.4 Toxicology Serum Alcohol (<10 MG/DL) < 10.0 Imaging/Other Studies: I CT HEAD MPRESSION: No acute intracranial pathology. No change compared with September 2015 carotid u/s IMPRESSION: 1. RIGHT: No significant stenosis of the proximal right internal carotid artery corresponding to a 0-49% stenosis by velocity criteria. 2. LEFT: No significant stenosis of the proximal left internal carotid artery corresponding to a 0-49% stenosis by velocity criteria. Assessment/Plan Assessment: Transient confusional spell associated with headache Symptoms resolved Recommendations: 24 hour observation Consult Acknowledgment - Thank you for your consult request.
[2016-04-26 17:24] VITALS: BP 152/74
--- NOTE | 2016-04-26 18:33 | ECHOCARDIOGRAM REPORT ---
STEPHANIE AVINA Age: 80 : 1935 Gender: M Exam Date: 04/26/2016 15:29 Exam Location: er Ht (in): 67 Wt (lb): 195 BSA: 2.07 BP: 157 / 78 Ordering Physician: EDA GAVIRIA MD Referring Physician: aMnan Rob MD Chief, SoC Technologist: Alicia Delacruz [facility] Room Number: ER#[id number] Indications: STROKE Rhythm: Paced Technical Quality: Good FINDINGS Left Ventricle Normal size left ventricle. Mild to moderate concentric left ventricular hypertrophy. Normal left ventricular ejection fraction visually estimated at >65 %. No obvious regional wall motion abnormalities. Abnormal relaxation filling pattern of the left ventricle for age (stage 1 diastolic dysfunction). Right Ventricle Normal right ventricular size and function. Catheter/pacemaker wire in the right ventricular cavity. Right Atrium Normal right atrial size. Catheter/pacemaker wire in the right atrial appendage. Left Atrium Mild left atrial dilatation. Mitral Valve The mitral valve is normal in structure and function. There is trace to mild mitral regurgitation. Aortic Valve Focal thickening of the aortic valve cusps. No aortic stenosis. Mild aortic regurgitation. Tricuspid Valve The tricuspid valve is normal in structure and function. There is mild tricuspid regurgitation. Right ventricular systolic pressure estimated to be elevated at 50 mmHg. Pulmonic Valve Pulmonic valve not well visualized, grossly normal. Mild pulmonic regurgitation. Pericardium Normal pericardium without effusion. No pleural effusion. Great Vessels Normal aortic root dimension. The aortic arch and great vessels are well seen and are normal. CONCLUSIONS Mild to moderate concentric left ventricular hypertrophy. Normal left ventricular ejection fraction visually estimated at >65 Abnormal relaxation filling pattern of the left ventricle for age (stage 1 diastolic dysfunction). Catheter/pacemaker wire in the right ventricular cavity. Catheter/pacemaker wire in the right atrial appendage. Mild left atrial dilatation. The mitral valve is normal in structure and function. Focal thickening of the aortic valve cusps. No aortic stenosis. Mild aortic regurgitation. Right ventricular systolic pressure estimated to be elevated at 50 mmHg. Manan Rob M.D. (Electronically Signed) Final Date: 26 April 2016 18:32 MEASUREMENTS (Male / Female) Normal Values 2D ECHO LV Diastolic Diameter PLAX 3.7 cm 4.2 - 5.9 / 3.9 - 5.3 cm LV Systolic Diameter PLAX 2.2 cm 2.1 - 4.0 cm LV Fractional Shortening PLAX 40.5 % 25 - 46 % LV Ejection Fraction 2D Teich 72.1 % IVS Diastolic Thickness 1.3 cm LVPW Diastolic Thickness 1.3 cm LV Relative Wall Thickness 0.7 RV Internal Dim ED PLAX 3.1 cm 1.9 - 3.8 cm LVOT Diameter 2.0 cm Aortic Root Diameter 3.4 cm LA Systolic Diameter LX 4.0 cm 3.0 - 4.0 / 2.7 - 3.8 cm LA Volume 53.0 cm 18 - 58 / 22 - 52 cm Ascending Aorta Diameter 2.8 cm DOPPLER AV Peak Velocity 157.0 cm/s AV Peak Gradient 9.9 mmHg AV Mean Velocity 110.0 cm/s AV Mean Gradient 6.0 mmHg AV Velocity Time Integral 28.4 cm LVOT Peak Velocity 118.0 cm/s LVOT Peak Gradient 5.6 mmHg LVOT Mean Velocity 75.3 cm/s LVOT Mean Gradient 3.0 mmHg LVOT Velocity Time Integral 22.2 cm LVOT Stroke Volume 69.7 cm AV Area Cont Eq vti 2.5 cm AV Area Cont Eq pk 2.4 cm MV Peak Velocity 90.3 cm/s MV Peak Gradient 3.3 mmHg MV Mean Velocity 54.5 cm/s MV Mean Gradient 1.0 mmHg Mitral E Point Velocity 45.4 cm/s Mitral A Point Velocity 80.5 cm/s Mitral E to A Ratio 0.6 MV PHT Velocity 69.8 cm/s MV Deceleration [place] 260.0 cm/s MV Pressure Half Time 80.5 ms MV Area PHT 2.7 cm MV Deceleration Time 378.0 ms TR Peak Velocity 337.0 cm/s TR Peak Gradient 45.4 mmHg Right Atrial Pressure 5.0 mmHg Pulmonary Artery Systolic Pressu 50.4 mmHg Right Ventricular Systolic Press 50.4 mmHg PV Peak Velocity 113.0 cm/s PV Peak Gradient 5.1 mmHg PV Mean Velocity 75.0 cm/s PV Mean Gradient 3.0 mmHg PV Velocity Time Integral 22.5 cm LV E' Lateral Velocity 6.0 cm/s Mitral E to LV E' Lateral Ratio 7.5 LV E' Septal Velocity 3.6 cm/s Mitral E to LV E' Septal Ratio 12.6
--- NOTE | 2016-04-26 19:30 | Cons- Cardiology ---
General Information and HPI Consulting Request Date of Consult: 04/26/16 Requested By: NADJA SHARPE M.D Reason for Consult: Cardiac and pacemaker evaluation in a patient who presents with altered mental status and headache. Source of Information: patient, family, old records Exam Limitations: no limitations History of Present Illness: Mr. Connor is an 80-year-old man who is well known to me. He presented with a complete heart block many years ago and has had several pacemakers implanted and replaced. His latest device was implanted by myself on 05/09/2010. At that time we abandoned the leads on the right side and put an entirely new system on the left side as his leads were faulty. Subsequently he has been doing very well. He has had no evidence of paroxysmal atrial fibrillation. He is totally pacemaker dependent with no underlying rhythm. I last checked him in November 2015 and all was well with his system at that time. He also has underlying mild hypertension, diabetes and dyslipidemia, all of which are appropriately treated. The patient presented with altered mental status, some degree of aphasia associated with a prolonged headache. All his symptoms and signs have resolved. Currently he has no complaints. He denies any chest pain, shortness of breath, palpitations, jaycee syncope. He has been evaluated by neurology who suggested 24-hour observation for any further symptoms. He has an echocardiogram done already which doesn't show any major abnormalities and carotid Doppler which didn't show any significant stenoses. Allergies/Medications Allergies: Coded Allergies: NO KNOWN ALLERGIES (10/05/10) Home Med List: Amlodipine Besylate 5 MG TABLET 1 TAB PO DAILY HEART (Reported) Atenolol 100 MG TABLET 1 TAB PO BID HEART (Reported) Atorvastatin Calcium 20 MG TABLET 1 TAB PO DAILY CHOLESTEROL (Reported) Clopidogrel Bisulfate (Clopidogrel) 75 MG TABLET 1 TAB PO DAILY BLOOD THINNER (Reported) Finasteride 5 MG TABLET 1 TAB PO DAILY PROSTATE (Reported) Glipizide 5 MG TABLET 1 TAB PO DAILY DM (Reported) Metformin HCl 500 MG TABLET 1 TAB PO DAILY DM (Reported) Tamsulosin HCl 0.4 MG CAP.ER.24H 1 CAP PO DAILY PROSTATE (Reported) Current Medications: Current Medications Sig/Margaux Start time Last Medication Dose Route Stop Time Status Admin Acetaminophen 1,000 MG ONCE ONE 04/26 1230 DC 04/26 N/A 1 UNIT IV 04/26 1244 1233 Acetaminophen 0 .STK-MED ONE 04/26 1229 DC IV Acetaminophen 650 MG Q6 PRN 04/26 1200 AC PO Amlodipine Besylate 5 MG DAILY 04/27 1000 AC PO Atenolol 100 MG DAILY 04/27 1000 AC PO Atorvastatin Calcium 20 MG 1700 04/26 1700 AC PO Clopidogrel Bisulfate 75 MG DAILY 04/27 1000 AC PO Finasteride 5 MG DAILY 04/27 1000 AC PO Heparin Sodium 0 .STK-MED ONE 04/26 1440 DC (Porcine) .ROUTE Heparin Sodium 5,000 UNIT Q8 04/26 1400 AC 04/26 (Porcine) SC 1434 Insulin Aspart 0 TIDAC 04/26 1700 AC SC Oxycodone HCl 5 MG Q6 PRN 04/26 1200 AC PO Oxycodone/ 2 TAB Q6 PRN 04/26 1200 AC Acetaminophen PO Tamsulosin HCl 0.4 MG DAILY 04/27 1000 AC PO Review of Systems Review of Systems: He has no other complaints in the review of systems. Past History Travel History Traveled to [place] past 21 day No Medical History Blood Transfusion Hx: No Neurological: TIA EENT: glaucoma, hearing loss Cardiovascular: hypertension, PACEMAKER Respiratory: NONE Gastrointestinal: NONE Hepatic: NONE Renal: NONE Musculoskeletal: NONE Psychiatric: NONE Endocrine: diabetes Blood Disorders: NONE Cancer(s): NONE CREAM TESTER/Reproductive: NONE Surgical History Surgical History: none (no illness known), non-contributory Psychosocial History Where Do You Live? Home Who Do You Live With? spouse Services at Home: None Smoking Status: Never Smoked ETOH Use: denies use Illicit Drug Use: denies illicit drug use Exam & Diagnostic Data Vital Signs and I&O Vital Signs Date Time Temp Pulse Resp B/P Pulse O2 O2 Flow FiO2 Ox Delivery Rate 04/26 1724 97.6 66 18 152/74 96 Room Air 04/26 1621 98.7 74 20 149/72 96 Room Air 04/26 1500 130/80 / 1353 97.8 66 18 135/74 97 Room Air 04/26 1135 97.9 73 20 157/78 98 Room Air 04/26 0830 97.0 75 20 118/70 97 Room Air Intake & Output 04/26 1600 04/26 0800 / 0000 / 1600 04/25 0800 04/25 0000 Intake Total 0 Output Total Balance 0 Intake, Oral 0 Patient 195 lb Weight Physical Exam: This is a pleasant elderly male in no acute distress. HEENT exam is normal Neck veins not distended Carotids normal Chest is clear Heart reveals regular rhythm and no murmurs. Pacemaker is intact in the left upper anterior chest wall. Extremities reveal no edema Neurologic examination at this time is normal. His son who was present at the time I examined him documented that his mental status is totally normal Labs/Jr Results: Laboratory Tests 04/26 1015 Toxicology Urine Opiates Screen (>2000 NG/ML) < 100.00 Methadone Screen (>300 NG/ML) < 40 Barbiturate Screen (>200 NG/ML) < 60 Ur Phencyclidine Scrn (>25 NG/ML) < 6.00 Amphetamines Screen (>1000 NG/ML) < 100 U Benzodiazepines Scrn (>200 NG/ML) < 85 Urine Cocaine Screen (>300 NG/ML) < 50 Urine Cannabis Screen (>50 NG/ML) < 5.00 Urines Urine Color (YEL,AMB,STR) YEL Urine Clarity (CLEAR) CLEAR Urine pH (5.0 - 8.0) 7.0 Ur Specific [place] (1.001 - 1.035) 1.015 Urine Protein (NEG,<30 MG/DL) TRACE H Urine Ketones (NEG) NEG Urine Nitrite (NEG) NEG Urine Bilirubin (NEG) NEG Urine Urobilinogen (0.1 - 1.0 EU/dl) 0.2 Ur Leukocyte Esterase (NEG) NEG Ur Microscopic SEDIMENT EXAMINED Urine RBC (0 - 5 /HPF) 3-5 Ur Epithelial Cells (NONE,FEW) FEW Urine Bacteria (NEG/NONE) RARE H Urine Hemoglobin (NEG) TRACE-INTACT H Urine Glucose (N MG/DL) NEG 04/26 0913 Chemistry Sodium (137 - 145 mmol/L) 140 Potassium (3.5 - 5.1 mmol/L) 3.8 Chloride (98 - 107 mmol/L) 98 Carbon Dioxide (22 - 30 mmol/L) 31 H Anion Gap (5 - 16) 11 BUN (9 - 20 mg/dL) 21 H Creatinine (0.7 - 1.2 mg/dL) 1.0 Estimated GFR (>60 ml/min) > 60 BUN/Creatinine Ratio (7 - 25 %) 21.0 Glucose (65 - 99 mg/dL) 157 H Hemoglobin A1c (4.2 - 5.8 %) Pending Calcium (8.4 - 10.2 mg/dL) 9.7 Total Bilirubin (0.2 - 1.3 mg/dL) 1.1 AST (17 - 59 U/L) 30 ALT (21 - 72 U/L) 40 Alkaline Phosphatase (< 127 U/L) 119 Troponin I (<0.11 ng/ml) < 0.01 Total Protein (6.3 - 8.2 g/dL) 7.5 Albumin (3.5 - 5.0 g/dL) 4.3 Globulin (1.9 - 4.2 gm/dL) 3.2 Albumin/Globulin Ratio (1.1 - 2.2 %) 1.3 TSH (0.270 - 4.200 uIU/mL) 1.440 Thyroxine (T4) (4.5 - 10.9 ug/dL) 10.2 Thyroxine Binding Indx (23.5 - 40.5 % UPTAKE) 35.7 Hematology CBC w Diff MAN DIFF ORDERED WBC (4.8 - 10.8 /CUMM) 11.9 H RBC (4.70 - 6.10 /CUMM) 5.66 Hgb (14.0 - 18.0 G/DL) 15.9 Hct (42 - 52 %) 47.7 MCV (80.0 - 94.0 FL) 84.4 MCH (27.0 - 31.0 PG) 28.2 RDW (11.5 - 14.5 %) 13.5 Plt Count (130 - 400 /CUMM) 174 MPV (7.4 - 10.4 FL) 9.2 Gran % (42.2 - 75.2 %) 84.0 H Lymphocytes % (20.5 - 51.1 %) 9.9 L Monocytes % (1.7 - 9.3 %) 5.5 Eosinophils % (0 - 5 %) 0.6 Basophils % (0.0 - 2.0 %) 0 L Absolute Granulocytes (1.4 - 6.5 /CUMM) 10.0 H Absolute Lymphocytes (1.2 - 3.4 /CUMM) 1.2 Absolute Monocytes (0.10 - 0.60 /CUMM) 0.7 H Absolute Eosinophils (0.0 - 0.7 /CUMM) 0.1 Absolute Basophils (0.0 - 0.2 /CUMM) 0 Platelet Estimate (ADEQUATE) VERIFIED BY SMEAR Normocytic RBCs VERIFIED Normochromic RBCs VERIFIED PUBS MCHC (33.0 - 37.0 G/DL) 33.4 Toxicology Serum Alcohol (<10 MG/DL) < 10.0 Diagnostic Data EKG Results EKG shows sinus rhythm at 79 with atrial sensing and ventricular pacing. CXR Results PATIENT: STEPHANIE CONNOR SR PRESENT AGE: 80 PATIENT ACCOUNT NO: [id number] : 34 LOCATION: [facility] ORDERING PHYSICIAN: TANISHA WHITE MD SERVICE DATE: 04/26/16 EXAM TYPE: RAD - XRY-PORTABLE CHEST XRAY EXAMINATION: XR PORTABLE CHEST CLINICAL INFORMATION: CHF infiltrate. COMPARISON: Prior chest September 2015. TECHNIQUE: Portable AP view of the chest was obtained. FINDINGS: LUNGS AND PLEURAL SPACES: Lung volumes decreased compatible with suboptimal inspiration. Lungs clear. Left pectoral pacer noted with leads in the region of the right atrium and right ventricle. Abandoned right-sided pacemaker leads noted, unchanged. The cardiac silhouette, mediastinum and pulmonary vascularity are normal. BONE AND SOFT TISSUES: Unremarkable. IMPRESSION: No acute disease. No change. Stable pacer noted. DICTATED BY: ARTURO HERBERT MD DATE/TIME DICTATED:04/26/16939 PATIENT PLACEMENT COORDINATOR:WILLIE DATE/TIME TRANSCRIBED:04/26/16939 CONFIDENTIAL, DO NOT COPY WITHOUT APPROPRIATE AUTHORIZATION. Other Results CONCLUSIONS Mild to moderate concentric left ventricular hypertrophy. Normal left ventricular ejection fraction visually estimated at >65 Abnormal relaxation filling pattern of the left ventricle for age (stage 1 diastolic dysfunction). Catheter/pacemaker wire in the right ventricular cavity. Catheter/pacemaker wire in the right atrial appendage. Mild left atrial dilatation. The mitral valve is normal in structure and function. Focal thickening of the aortic valve cusps. No aortic stenosis. Mild aortic regurgitation. Right ventricular systolic pressure estimated to be elevated at 50 mmHg. Manan Rob M.D. (Electronically Signed) Final Date: 26 April 2016 18:32 Assessment/Plan Assessment/Plan Mr. Connor is an 80-year-old man with complete heart block for many years. He has had several pacemakers, the most recent in 2010, which is working well. He presented with transient aphasia and headache and difficulty with memory. All his symptoms have resolved. He is on Plavix. His evaluation including carotid Doppler and echocardiogram have been negative. I did interrogate the pacemaker and it is working properly. There have been no documented atrial arrhythmias or any other malfunction of the pacemaker to explain his symptoms. Probably he had a prolonged migraine episode accounting for his neurologic deficits, which have resolved. The patient can be removed from telemetry monitoring in the morning if there are no arrhythmias. Consult Acknowledgment - Thank you for your consult request.
[2016-04-26 23:31] VITALS: BP 150/80
[2016-04-27 07:52] VITALS: BP 162/90
--- NOTE | 2016-04-27 07:57 | PN- Housestaff ---
JOSE FRY MD 04/27/16 0748: Subjective Follow-up For: TIA Tele-Events Since Last Visit: paced 60-62 Subjective: Pt seen this morning, was in good spirits and denied any complaints including numbness, weakness, confusion, difficulty speaking/finding words. He was conversing well. pacemaker interrogation done and working properly. Review of Systems Constitutional: Denies: chills, fever. EENTM: Denies: visual changes. Cardiovascular: Denies: chest pain. Respiratory: Denies: cough, short of breath. Gastrointestinal: Denies: abdominal pain. Objective Last 24 Hrs of Vital Signs/I&O Vital Signs Date Time Temp Pulse Resp B/P Pulse O2 O2 Flow FiO2 Ox Delivery Rate 04/26 2331 98.5 68 18 150/80 96 Room Air 04/26 1724 97.6 66 18 152/74 96 Room Air 04/26 1621 98.7 74 20 149/72 96 Room Air 04/26 1500 130/80 04/26 1353 97.8 66 18 135/74 97 Room Air 04/26 1135 97.9 73 20 157/78 98 Room Air 04/26 0830 97.0 75 20 118/70 97 Room Air Intake & Output 04/27 0800 / 0000 04/26 1600 Intake Total 100 410 0 Output Total 500 400 Balance -400 10 0 Intake, IV 10 Intake, Oral 100 400 0 Number 0 Bowel Movements Output, Urine 500 400 Patient 87.997 kg 88.451 kg Weight Physical Exam General Appearance: Alert, Oriented X3, Cooperative, No Acute Distress Skin: No Significant Lesion HEENT: Atraumatic Cardiovascular: Regular Rate, Normal S1, Normal S2 Lungs: Clear to Auscultation, Normal Air Movement Abdomen: Normal Bowel Sounds, Soft, No Tenderness Neurological: Normal Speech, Strength at 5/5 X4 Ext, Normal Tone, Sensation Intact Extremities: No Edema Current Medications: Current Medications Sig/Margaux Start time Last Medication Dose Route Stop Time Status Admin Acetaminophen 1,000 MG ONCE ONE 04/26 1230 DC 04/26 N/A 1 UNIT IV 04/26 1244 1233 Acetaminophen 0 .STK-MED ONE 04/26 1229 DC IV Acetaminophen 650 MG Q6 PRN 04/26 1200 AC PO Amlodipine Besylate 5 MG DAILY 04/27 1000 AC PO Atenolol 100 MG DAILY 04/27 1000 AC PO Atorvastatin Calcium 20 MG 1700 04/26 1700 AC 04/26 PO 2118 Clopidogrel Bisulfate 75 MG DAILY 04/27 1000 AC PO Finasteride 5 MG DAILY 04/27 1000 AC PO Heparin Sodium 0 .STK-MED ONE 04/26 1440 DC (Porcine) .ROUTE Heparin Sodium 5,000 UNIT Q8 04/26 1400 AC 04/27 (Porcine) SC 0651 Insulin Aspart 0 TIDAC 04/26 1700 AC SC Oxycodone HCl 5 MG Q6 PRN 04/26 1200 AC PO Oxycodone/ 2 TAB Q6 PRN 04/26 1200 AC Acetaminophen PO Tamsulosin HCl 0.4 MG DAILY 04/27 1000 AC PO Last 24 Hrs of Lab/Jr Results Last 24 Hrs of Labs/Mics: Laboratory Tests 04/27/16 0635: Sodium Pending, Potassium Pending, Chloride Pending, Carbon Dioxide Pending, Anion Gap Pending, BUN Pending, Creatinine Pending, BUN/Creatinine Ratio Pending , Triglycerides Pending, Cholesterol Pending, LDL Cholesterol, Calc Pending, HDL Cholesterol Pending, Cholesterol/HDL Ratio Pending, CBC w Diff Pending, WBC Pending, RBC Pending, Hgb Pending, Hct Pending, MCV Pending, MCH Pending, RDW Pending, Plt Count Pending, MPV Pending, PUBS MCHC Pending 04/26/16 1015: Urine Opiates Screen < 100.00, Methadone Screen < 40, Barbiturate Screen < 60, Ur Phencyclidine Scrn < 6.00, Amphetamines Screen < 100, U Benzodiazepines Scrn < 85, Urine Cocaine Screen < 50, Urine Cannabis Screen < 5.00, Urine Color YEL, Urine Clarity CLEAR, Urine pH 7.0, Ur Specific [place] 1.015, Urine Protein TRACE H, Urine Ketones NEG, Urine Nitrite NEG, Urine Bilirubin NEG, Urine Urobilinogen 0.2, Ur Leukocyte Esterase NEG, Ur Microscopic SEDIMENT EXAMINED, Urine RBC 3-5, Ur Epithelial Cells FEW, Urine Bacteria RARE H, Urine Hemoglobin TRACE-INTACT H, Urine Glucose NEG 04/26/16 0913: Anion Gap 11, Estimated GFR > 60, BUN/Creatinine Ratio 21.0, Glucose 157 H, Hemoglobin A1c Pending, Calcium 9.7, Total Bilirubin 1.1, AST 30, ALT 40, Alkaline Phosphatase 119, Troponin I < 0.01, Total Protein 7.5, Albumin 4.3, Globulin 3.2, Albumin/Globulin Ratio 1.3, TSH 1.440, Thyroxine (T4) 10.2, Thyroxine Binding Indx 35.7, CBC w Diff MAN DIFF ORDERED, RBC 5.66, MCV 84.4, MCH 28.2, RDW 13.5, MPV 9.2, Gran % 84.0 H, Lymphocytes % 9.9 L, Monocytes % 5.5, Eosinophils % 0.6, Basophils % 0 L, Absolute Granulocytes 10.0 H, Absolute Lymphocytes 1.2, Absolute Monocytes 0.7 H, Absolute Eosinophils 0.1, Absolute Basophils 0, Platelet Estimate VERIFIED BY SMEAR, Normocytic RBCs VERIFIED, Normochromic RBCs VERIFIED, PUBS MCHC 33.4, Serum Alcohol < 10.0 Microbiology 04/26 1015 URINE ROUT: Urine Culture - RECD Assessment/Plan Assessment: 80-year-old male with a past medical history of [id number] diabetes mellitus, hypertension, hyperlipidemia, benign prostatic hyperplasia, TIA, complete heart block status post dual-chamber pacemaker was brought to the ED by his son with chief complaints of altered mental status and headache of 1 day duration. Pt observed in tele for TIA workup. # Transitional confusion associated with headache (resolved) - Head CT negative - US carotid negative - Pacemaker interrogation done and pacemaker working well - MRI not done due to MRI incompatibility of pacemaker - Echo: Normal left ventricular ejection fraction visually estimated at >65. Abnormal relaxation filling pattern of the left ventricle for age (stage 1 diastolic dysfunction). Right ventricular systolic pressure estimated to be elevated at 50 mmHg. * PT and ST on board * Neurology on board, recc 24 hour observation * Cardiology on board, can discontinue telemetry if no arrythmia * Orthostats vitals * Continue plavix # Hypertension Continue on amlodipine 5 mg daily, atenolol 100 mg twice a day. # BPH Continue on finasteride 5 mg daily and tamsulosin 0.4 mg daily # [id number] diabetes mellitus Patient is on glipizide and metformin While he is in the hospital will have him on NovoLog sliding scale Accu-Cheks 3 times a day and at bedtime Follow-up hemoglobin A1c Diet: CC2 DVT prophylaxis: Heparin 5000 international units 3 times a day subcutaneous FULL CODE Problem List: 1. Altered mental status, unspecified Pain Ratin Pain Location: none Pain Goal: Remain pain free Pain Plan: none Tomorrow's Labs & Rationales: none DVT/Prophylaxis: mechanical, pharmacological Consulting Request: Consulting Specialty: Neurology Consulting Physician: Dr. Colunga Reason for Consult: TORI SHARPE MD,NADJA 04/27/16 1025: Attending MD Review Statement Attending Statement Attending MD Statement: examined this patient, discuss w/resident/PA/DRUM LOADER AND UNLOADER, agreed w/resident/PA/DRUM LOADER AND UNLOADER, reviewed EMR data (avail), discussed with nursing, discussed with case mgmt, amended to note Attending Assessment/Plan: patient seen and examined. Resting comfortably and not in acute distress. No issues overnight. No events on telemetry. This morning he is alert and oriented 3. He is conversing appropriately in Indonesian. SA ukrainian-speaking medical student was present and acknowledges that patient is communicating appropriately inspirations well. Neurology consultation appreciated. So far patient's workup has been negative including carotid dopplers, echo and telemetry monitoring. His presentation is more likely secondary to a transient confusional state rather than a transit ischemic attack. He has no neurologic deficits on examination today. He is medically stable to be discharged home and should follow-up with his primary care provider as an outpatient.
--- NOTE | 2016-04-27 08:00 | Patient Discharge Instructions ---
Discharge Instructions General Discharge Information You were seen/treated for: Transitional confusion with headache Watch for these problems: Increased confusion, numbness, weakness, difficulty speaking Special Instructions: - Please follow up with PCP in 1 week. - Please follow up with PCP for hearing aid. Diet Continue normal diet: Yes Recommended Diet: Diabetic Activity Full Activity/No Limits: Yes Acute Coronary Syndrome Inclusion Criteria At DC or during hospital stay patient has or had the following: ACS DIAGNOSIS No Discharge Core Measures Meds if any: Prescribed or Continued at Discharge Meds if any: NOT Prescribed or Continued at Discharge Congestive Heart Failure Inclusion Criteria At DC or during hospital stay patient has or had the following: CHF DIAGNOSIS No Discharge Core Measures Meds if any: Prescribed or Continued at Discharge Meds if any: NOT Prescribed or Continued at Discharge Cerebrovascular accident Inclusion Criteria At DC or during hospital stay patient has or had the following: CVA/TIA Diagnosis Yes Discharge Core Measures Meds if any: Prescribed or Continued at Discharge Meds if any: NOT Prescribed or Continued at Discharge Venous thromboembolism Inclusion Criteria VTE Diagnosis No VTE Type NONE VTE Confirmed by (Test) NONE Discharge Core Measures - Per Current guidelines, there needs to be overlap - treatment for the first 5 days of Warfarin therapy. - If discharged on Warfarin prior to 5 days of - overlap therapy, the patient will need to be - assessed for post discharge needs including - *Post discharge parental anticoagulation - *Warfarin and/or parental anticoagulation education - *Follow up date to check INR post discharge At least 5 days overlap therapy as Inpatient No Meds if any: Prescribed or Continued at Discharge Note: Overlap Therapy is Warfarin and Anticoagulant Meds if any: NOT Prescribed or Continued at Discharge
[2016-04-27 08:16] LABS: ABSOLUTE BASOPHIL COUNT 0 /CUMM (0.0-0.2); ABSOLUTE EOSINOPHIL COUNT 0.1 /CUMM (0.0-0.7); ABSOLUTE GRANULOCYTE CT 5.4 /CUMM (1.4-6.5); ABSOLUTE LYMPH COUNT 1.7 /CUMM (1.2-3.4); ABSOLUTE MONOCYTE COUNT 0.8 /CUMM (0.10-0.60); BASOPHIL % 0.5 % (0.0-2.0); EOSINOPHIL % 1.4 % (0-5); GRANULOCYTE % 66.8 % (42.2-75.2); HEMATOCRIT 44.1 % (42-52); MEAN CORPUSCULAR HGB 28.4 PG (27.0-31.0); MEAN CORPUSCULAR HGB CONC 33.7 G/DL (33.0-37.0); MEAN CORPUSCULAR VOLUME 84.4 FL (80.0-94.0); MEAN PLATELET VOLUME 9.7 FL (7.4-10.4); PLATELET COUNT 156 /CUMM (130-400); RBC DISTRIBUTION WIDTH 13.4 % (11.5-14.5); RED BLOOD CELL CT 5.22 /CUMM (4.70-6.10); WHITE BLOOD CELL COUNT 8.1 /CUMM (4.8-10.8)
[2016-04-27 09:38] VITALS: BP 140/72
== END 2016-04-27 10:57 ==
LOC: ENRESERVTM → ENRESERVDT → ERH 08:22 → ERHI 11:53 → ENPENDDIS 11:53 → ERHI 11:53 → 1NO 16:50
PROVIDERS: Emergency Medicine; Internal Medicine Infectious Disease; ADMIT Internal Medicine
DX: R41.82 Altered mental status, unspecified (principal); I10 Essential (primary) hypertension; E78.5 Hyperlipidemia, unspecified; N40.0 Benign prostatic hyperplasia without lower urinary tract symptoms; E11.9 Type 2 diabetes mellitus without complications; Z79.84 Long term (current) use of oral hypoglycemic drugs; Z95.0 Presence of cardiac pacemaker; Z86.73 Personal history of transient ischemic attack (TIA), and cerebral infarction without residual deficits
CPT/HCPCS: 2000; 6020; 80307; 81001; 82436; 87086; 92610-GN; 93005; 93010; 93306; 96372; 96374; 97116-GP; 97161-GP; G0378; G0480; G8996-GN; G8997-GN; G8998-GN; J0131; J1644